=== PATIENT | male | born 1955 | race American Indian/Alaskan Native ===

== ENCOUNTER 2019-05-06 10:26 | Emergency (ER) | payer SELFPAY ==
[2019-05-06 11:21] VITALS: BP 154/85
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
== END 2019-05-06 12:21 | disposition home or self-care (01) ==
LOC: ED 10:26
DX: T24.412A Corrosion of unspecified degree of left thigh, initial encounter (principal); T24.411A Corrosion of unspecified degree of right thigh, initial encounter; Y93.89 Activity, other specified; Y92.89 Other specified places as the place of occurrence of the external cause; Y99.8 Other external cause status
CPT/HCPCS: 99282